=== PATIENT | male | born 2000 | race Caucasian/White ===

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

== ENCOUNTER 2022-11-03 19:29 | Emergency (ER) | payer MEDICAID, OTHER ==
[2022-11-03 19:58] VITALS: BP 131/81
[2022-11-03] MEDS ORDERED: KETOROLAC 30 MG/ML VIAL IM STA (20:14)
[2022-11-03] MEDS ORDERED: oxyCODONE 5 MG TABLET PO STA (20:14)
--- NOTE | 2022-11-03 20:17 | ED Physician Documentation ---
PD HPI HEENT - Stated complaint Stated Complaint: JAW PX - Chief complaint Chief Complaint: Heent - History obtained from History obtained from: Patient - Additional information Additional information: 22-year-old man with history of dental caries presents status post antibiotic course of cephalexin, just completed yesterday, with persistent pain in the left lower molar where he has a cavity. Patient is scheduled for extraction on November 19 but states he cannot bear the pain. Denies any fever, shortness of breath, difficulty swallowing. Review of Systems Throat: reports: Dental pain / toothache. denies: Sore throat, Swollen tonsils PD PAST MEDICAL HISTORY - Past Medical History Cardiovascular: None Respiratory: None Endocrine/Autoimmune: None GI: None : None HEENT: None Psych: ADD/ADHD Musculoskeletal: None Derm: None - Past Surgical History Past Surgical History: Yes - Present Medications Home Medications: Ambulatory Orders Medication Instructions Recorded Confirmed Oxycodone HCl/Acetaminophen 1 each PO Q4H PRN #5 tablet 11/03/22 [Percocet 10-325 mg Tablet] - Allergies Allergies/Adverse Reactions: Allergies Allergy/AdvReac Type Severity Reaction Status Date / Time Penicillins Allergy swelling Verified 11/03/22 19:58 - Social History Does the pt smoke?: No Smoking Status: Former smoker Does the pt drink ETOH?: No Does the pt have substance abuse?: Yes Substance Use and Type: Marijuana - Immunizations Immunizations are current?: Yes - POLST Patient has POLST: No PD ED PE NORMAL - Vitals Vital signs reviewed: Yes - General General: Alert and oriented X 3, No acute distress, Well developed/nourished - HEENT HEENT: Atraumatic, PERRL, EOMI, Moist mucous membranes, Pharynx benign, Other (Multiple dental caries to left upper and lower molars) - Neck Neck: Supple, no meningeal sign Results - Vitals Vitals: Vital Signs - 24 hr 11/03/22 19:55 Temperature 36.5 C Heart Rate 69 Respiratory 17 Rate Blood Pressure 131/81 H O2 Saturation 97 Oxygen O2 Source Room air PD Medical Decision Making - ED course ED course: 22-year-old man presents with dental caries and resulting pain. No signs of infection. No concern for eva angina or other pathology. Analgesia provided in the emergency department including oxycodone and IM Toradol with relief. Prescription sent to pharmacy. He will follow-up with emergency dental in the morning. Return precautions given. Departure - Departure Disposition: 01 Home, Self Care Clinical Impression: Dental caries Condition: Good Instructions: ED Cavity Dental Prescriptions: Oxycodone HCl/Acetaminophen [Percocet 10-325 mg Tablet] 1 each PO Q4H PRN #5 tablet PRN Reason: Pain Comments: You are seen in the emergency department for dental pain. Please follow-up with emergency dental Dr. Yang Garcia and return to the emergency department for new or worsening symptoms or other concerns. An electronic prescription was sent to [facility] in [place].
== END 2022-11-03 21:12 | disposition home or self-care (01) ==
LOC: ED 19:29
DX: K02.9 Dental caries, unspecified (principal); Z87.891 Personal history of nicotine dependence
CPT/HCPCS: 99283; A9270